=== PATIENT | female | born 1990 | race Caucasian/White ===

== ENCOUNTER 2020-07-23 09:18 | Emergency (ER) | payer BC ==
[~2020-07-23] VITALS: Ht 154.9 cm; Wt 42.6 kg
[2020-07-23 09:22] VITALS: BP 108/78; Ht 154.9 cm; Wt 42.6 kg
[2020-07-23] MEDS ORDERED: IBU400 M1 PO (10:10)
== END 2020-07-23 10:33 | disposition home or self-care (01) ==
LOC: ED 09:18
DX: S62.326A Displaced fracture of shaft of fifth metacarpal bone, right hand, initial encounter for closed fracture (principal); S63.501A Unspecified sprain of right wrist, initial encounter; W22.01XA Walked into wall, initial encounter; Y93.89 Activity, other specified; Y92.89 Other specified places as the place of occurrence of the external cause; Y99.8 Other external cause status